=== PATIENT | female | born 1995 | race Caucasian/White ===

== ENCOUNTER 2020-04-07 20:56 | Emergency (ER) | payer SELFPAY ==
[2020-04-07] MEDS ORDERED: predniSONE 20 MG Tab PO ONE (22:15)
--- NOTE | 2020-04-07 22:20 | EDM.PDOC ---
ED HPI GENERAL MEDICAL PROBLEM - General Chief Complaint: Bite:Animal, Insect Stated Complaint: STUNG OR BIT TO RIGHT LIP Time Seen by Provider: 04/07/20 22:16 Source of Information: Reports: Patient History Limitations: Reports: No Limitations - History of Present Illness INITIAL COMMENTS - FREE TEXT/NARRATIVE: got bit by something [employer] and right lip swelled up, took benadyl - Related Data Allergies Allergy/AdvReac Type Severity Reaction Status Date / Time cefaclor [From Ceclor] Allergy Hives Verified 04/07/20 21:49 Home Meds: Home Meds . [No Known Home Meds] 04/07/20 [History] Past Medical History - Past Health History Medical/Surgical History: Denies Medical/Surgical History Social & Family History - Tobacco Use Smoking Status *Q: Never Smoker - Caffeine Use Caffeine Use: Reports: None - Recreational Drug Use Recreational Drug Use: No ED ROS GENERAL - Review of Systems Review Of Systems: Comprehensive ROS is negative, except as noted in HPI. ED EXAM, ANIMAL BITE - Physical Exam Exam: See Below Exam Limited By: No Limitations General Appearance: Alert, WD/WN, Mild Distress, Other (upset) Ears: Hearing Grossly Normal Throat/Mouth: Normal Inspection, Normal Voice, No Airway Compromise, Other (right upper lip swelling, non erythematous) Head: Atraumatic Neck: Non-Tender, Full Range of Motion Respiratory/Chest: No Respiratory Distress Cardiovascular: Regular Rate, Rhythm GI/Abdominal: Soft, Non-Tender Neurological: Alert, Oriented, Normal Cognition, Normal Gait, No Motor/Sensory Deficits Psychiatric: Normal Affect, Normal Mood Skin Exam: Normal Color, Warm/Dry Lymphatic: No Adenopathy Course - Vital Signs Last Recorded V/S: Last Vital Signs Temp 36.9 C 04/07/20 21:25 Pulse 58 L 04/07/20 21:25 Resp 16 04/07/20 21:25 BP 118/66 04/07/20 21:25 Pulse Ox 100 04/07/20 21:25 - Orders/Labs/Meds Orders: Medication Orders Prednisone (Prednisone) 20 mg PO ONETIME ONE Stop: 04/07/20 22:16 Meds: Medications Generic Name Dose Route Start Last Admin Trade Name Freq PRN Reason Stop Dose Admin Prednisone 20 mg 04/07/20 22:15 Prednisone PO 04/07/20 22:16 ONETIME ONE Departure - Departure Time of Disposition: 22:18 Disposition: Home, Self-Care 01 Condition: Good Clinical Impression: Allergic reaction to insect bite - Discharge Information Instructions: Insect Bite, Adult, [id number] Additional Instructions: 1) continue with benadryl 2) recheck if there is any change or concern or worsening of condition rx given; alfie tyler Sepsis Event Note (ED) - Evaluation Sepsis Screening Result: No Definite Risk - Focused Exam Vital Signs: Vital Signs Temp Pulse Resp BP Pulse Ox 04/07/20 21:25 36.9 C 58 L 16 118/66 100
== END 2020-04-07 22:25 | disposition home or self-care (01) ==
LOC: DL.ED 20:56
DX: S00.561A Insect bite (nonvenomous) of lip, initial encounter (principal); Z88.1 Allergy status to other antibiotic agents; W57.XXXA Bitten or stung by nonvenomous insect and other nonvenomous arthropods, initial encounter
CPT/HCPCS: 99282; J7512